=== PATIENT | female | born 1975 | race Caucasian/White ===

== ENCOUNTER → 2020-09-03 03:13 | Outpatient (CLI) | payer MEDICAID, SELFPAY ==
[2020-09-03 20:35] LABS: SARS-CoV-2 RNA PCR Negative
== END ==
PROVIDERS: Visit Provider Urology
DX: Z01.812 Encounter for preprocedural laboratory examination (principal); Z20.822 Contact with and (suspected) exposure to COVID-19
CPT/HCPCS: C9803; U0003; U0005

== ENCOUNTER 2020-09-03 08:58 | Outpatient (CLI) | payer BC, MEDICAID, SELFPAY | END 2020-09-03 08:59 | disposition home or self-care (01) | PROVIDERS: Visit Provider Urology | DX: Z01.812 Encounter for preprocedural laboratory examination (principal); N39.3 Stress incontinence (female) (male) | CPT/HCPCS: 87086 ==

== ENCOUNTER 2020-09-06 01:20 | Day surgery (SDC) | payer BC, MEDICAID, SELFPAY ==
[2020-08-30 18:31] VITALS: BMI 29.0
--- NOTE | 2020-08-31 09:20 | PM.IMHP ---
H&P: HPI History of Present Illness Date/Time: 08/31/20 09:20 Chief Complaint: jayro Narrative: Myla Sawyer is a 45 year old female with JAYRO. h/o Colpopexy, TOT, Bulking agent x2 Review of Systems Review of Systems: All systems reviewed & are unremarkable except as noted in HPI and below PMFSH Social History Social History Smoking packs per day: 0.5 Smoking cigarettes per day: 10.0 Years smoked: 20 Smoking pack-years: 10.00 Smoking status: Current every day smoker Tobacco type: cigarettes Alcohol intake: never Substance use: never Substance use type: does not use Spiritual care concerns: No Meds Home Medications and Allergies Home Medications Medication Instructions Recorded Confirmed Type lorazepam 0.5 mg PO TID PRN 08/30/20 08/30/20 History oxybutynin chloride 15 mg PO DAILY 08/30/20 08/30/20 History progesterone micronized 100 mg PO HS 08/30/20 08/30/20 History tramadol 50 mg PO Q6H PRN 08/30/20 08/30/20 History trazodone 100 mg PO HS 08/30/20 08/30/20 History venlafaxine 75 mg PO HS 08/30/20 08/30/20 History Allergies Allergy/AdvReac Type Severity Reaction Status Date / Time Sulfa (Sulfonamide AdvReac Diarrhea Verified 08/30/20 18:20 Antibiotics) Exam Const: General: cooperative and healthy appearing HENMT: Head: normal to inspection Eyes: General: appearance normal, both eyes and all related structures Resp: Effort & Inspection: normal respiratory effort and able to speak in complete sentences Skin: General skin exam: normal color Neuro: General: patient oriented x3 Assessment and Plan Assessment and plan (1) JAYRO (stress urinary incontinence, female): Code(s): N39.3 - Stress incontinence (female) (male) Status: Acute Assessment and Plan: retropubic urethral sling
--- NOTE | 2020-09-05 10:13 | WPDANESEPPF ---
Anes - Initial Pre Proc Eval Procedure: Operation Date: 09/06/20 11:45 Proposed Procedures p Urethral Sling - Josh Bergeron MD Date/Time: 09/05/20 10:13 Surgeon: Josh Bergeron MD Pre Op Diagnosis: stress incontinence Patient Data Age: 45 Gender: F Height: 1.68 m Weight: 81.65 kg Allergies Allergy/AdvReac Type Severity Reaction Status Date / Time Sulfa (Sulfonamide AdvReac Diarrhea Verified 09/06/20 10:02 Antibiotics) Home Medications Medication Instructions Recorded Confirmed Type lorazepam 0.5 mg PO TID PRN 08/30/20 08/30/20 History oxybutynin chloride 15 mg PO DAILY 08/30/20 08/30/20 History progesterone micronized 100 mg PO HS 08/30/20 08/30/20 History tramadol 50 mg PO Q6H PRN 08/30/20 08/30/20 History trazodone 100 mg PO HS 08/30/20 08/30/20 History venlafaxine 75 mg PO HS 08/30/20 08/30/20 History Patient hx anesthesia problems: none Family hx anesthesia problems: none [facility] Past Medical History Medical History (Updated 09/05/20 @ 10:14 by Jerry Quevedo DO) Anxiety DVT (deep venous thrombosis) Hyperlipidemia Pulmonary embolism Surgical History Surgical History (Updated 09/05/20 @ 10:14 by Jerry Quevedo DO) History of hysterectomy History of tonsillectomy Social History Social History Smoking packs per day: 0.5 Smoking cigarettes per day: 10.0 Years smoked: 20 Smoking pack-years: 10.00 Smoking status: Current every day smoker Tobacco type: cigarettes Alcohol intake: never Substance use: never Substance use type: does not use Living arrangements: with family Spiritual care concerns: No Anes - Eval Final PreProcedure Day of Procedure 09/05/20 10:13 Patient weight: overweight Heart: regular rate and rhythm Lungs: clear to auscultation and normal air movement Airway: Mallampati scale class III Neurological: alert and oriented Last oral intake: >/= 8 hours ASA classification: III Emergent: no Anesthetic plan: proceed Anesthesia type and monitoring: general LMA and standard monitoring Informed Consent: The patient's anesthetic plan and its attendant risks and benefits were discussed with the patient/family/POA. Questions were solicited and answers provided to the satisfaction of the patient/family/POA.
[2020-09-06] VITALS (11 sets, daily range): BP systolic 118–153; BP diastolic 59–93; PULSE 69–98; RESP 16–20; TEMP 36.2–36.3; O2SAT 95–100
--- NOTE | 2020-09-06 07:10 | WPDHPUPDATE1 ---
History and Physical Update Update Date/Time: 09/06/20 07:10 History and Physical has been reviewed, including an updated exam of the patient. There are NO changes in the patient's condition. Risks, benefits, and alternatives have been discussed and questions answered. Patient agrees to proceed with procedure.
[2020-09-06] MEDS: LACTATED RINGERS 1,000 ML 30 ML IV CONT ×2 (10:15→12:30)
[2020-09-06] MEDS: ceFAZolin 2 GM/D5W 50 ML 2 GM/50 ML BAG IVPB (11:43)
[2020-09-06] MEDS: BUPIVACAINE/EPINEPHRINE 0.25% 50 ML VIAL 20 ML INFILTRATE (11:57)
--- NOTE | 2020-09-06 12:27 | PM.PROC ---
Procedure Note - Detailed Date of procedure: 09/06/20 Pre-op diagnosis: stress incontinence Post-op diagnosis: same Procedure performed: Retropubic mid urethral sling Description of procedure: She status post a previous sling and 2 bulking agents. She is also status post colpopexy. She has bothersome stress incontinence on urodynamics and on physical exam. She also has an overactive bladder. She is here today for treatment of her stress incontinence. We will do a retropubic sling. She understands risks of bleeding, infection, damage to the bladder, damage to the urethra, lack of cure of stress incontinence, vaginal mesh extrusion, urinary tract mesh erosion, obstructive voiding requiring secondary procedure, hip and leg pain, dyspareunia. She agrees to proceed She was correctly identified. Informed consent obtained. From the operating room. She was given general anesthesia. Placed in dorsal lithotomy position. Pressure points were padded. She was given appropriate perioperative antibiotics. A time-out performed. I placed Pérez catheter. I anesthetized the anterior vaginal wall over the mid urethra. I dissected out laterally taking great care not to injure the refilled vaginal wall. I made incisions in the suprapubic area. I hydrodissected the retropubic space with local mixed with saline. I did this bilaterally. I passed the suprapubic trocars from the suprapubic incision towards the vaginal incision. I performed cystoscopy. There was no tumors, there is no surgical artifact, there is no penetration of the bladder, there was [id number] trabeculations, urethra was normal, there was some of his from the bulking agent seen in the urethra. Ureteral orifices are normal. I connected the sling to the cart trocars. A brought out through the suprapubic incisions. The skin sling was tensioned appropriately. The plastic sheaths were cut removed. The incision was closed a 2 0 Vicryl. I reperformed cystoscopy. There is no bladder artifact or abnormalities. There is no leakage on day. I cut the excess sling material. Close incision of the glue. She was awakened transferred to PACU in stable condition. Anesthesia: GLMA Surgeon: Josh Bergeron MD Estimated blood loss (mL): 20 Drains: No Packing: No Pathology: none sent Complications: No immediate complications Condition: stable Disposition: PACU
[2020-09-06] MEDS: ONDANSETRON INJ 4 MG/2 ML VIAL IV PUSH (13:00)
[2020-09-06] MEDS: fentaNYL CITRATE INJ (*CRX) 100 MCG/2 ML VIAL 25 MCG IV PUSH ×6 (13:04→13:31)
== END 2020-09-06 14:47 | disposition home or self-care (01) ==
PROVIDERS: PCP Nurse Practitioner; Visit Provider Urology
PROC: (CPT 57288; principal; 2020-09-06 11:45)
DX: N39.3 Stress incontinence (female) (male) (principal); E78.5 Hyperlipidemia, unspecified; F41.9 Anxiety disorder, unspecified; Z86.718 Personal history of other venous thrombosis and embolism; Z86.711 Personal history of pulmonary embolism; F17.210 Nicotine dependence, cigarettes, uncomplicated
CPT/HCPCS: 57288; A9270; C1771; J0690; J1100; J2250; J2405; J2704; J3010; J7030; J7120